=== PATIENT | female | born 1980 | race Caucasian/White ===

== ENCOUNTER 2022-09-17 10:00 | Outpatient (REF) | payer BC, SELFPAY ==
--- NOTE | ~2022-09-17 | MR_ITS ---
EXAMINATION: MR BRAIN WITHOUT AND WITH CONTRAST MR CERVICAL SPINE WITHOUT AND WITH CONTRAST CLINICAL INDICATION Multiple sclerosis. COMPARISON: There are no prior studies available for comparison at time of dictation. TECHNIQUE: MRI scans of the brain and cervical spine were obtained using routine sequences without and with contrast. Intravenous contrast: Gadavist, 5.5 mL. FINDINGS: MRI Brain: No diffusion abnormalities are identified to suggest an acute or subacute infarct. No mass effect or midline shift is seen. The ventricles and sulci are normal in size. Brain parenchymal signal is unremarkable. No extra-axial fluid collections are seen. The brainstem and cerebellum are normal. 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 On postcontrast imaging, there is no abnormal parenchymal or leptomeningeal enhancement. No pathologic magnetic susceptibility artifact is identified on the gradient refocused acquisition. The craniovertebral junction, marrow signal, and midline structures are normal. The major intracranial flow-voids at the level of the the [place] are preserved. The dural venous sinus flow-voids are maintained.; The intradural left vertebral artery has thinner caliber compared to the right. The mastoid air cells are well-aerated. There is extensive opacification of the left sphenoid sinus. MRI Cervical Spine: VERTEBRAL BODIES AND PARASPINAL SOFT TISSUES: There is a mild levoscoliosis. There is narrowing of intervertebral disc height at C5-C6 and C6-C7. The vertebral bodies have normal height and contour and no fractures are demonstrated. There are minimal edematous endplate signal changes toward the left at C5-C6. Overall, marrow signal is homogenous. There is no abnormal osseous enhancement. The visualized regional soft tissues and upper lung [place] are unremarkable. CERVICOMEDULLARY JUNCTION AND VISUALIZED POSTERIOR FOSSA: There is artifact over the posterior fossa on the T2 and STIR images. The craniocervical and visualized posterior fossa structures are normal. There is no abnormal enhancement of the spinal cord. SPINAL LEVELS: C2-C3: The facet joints appear normal bilaterally. Posterior disc contour is normal. There is no spinal cord compression or central stenosis. The neural foramina are patent bilaterally. C3-C4: The facet joints appear normal bilaterally. Posterior disc contour is normal. There is no spinal cord compression or central stenosis. The neural foramina are patent bilaterally. C4-C5: The facet joints appear normal bilaterally. Posterior disc contour is normal. There is no spinal cord compression or central stenosis. The neural foramina are patent bilaterally. C5-C6: The facet joints appear normal. There is a broad-based posterior soft disc protrusion which is more prominent just to the right of midline. There is effacement of CSF around the cord without cord compression. There is mild central stenosis. There are uncovertebral osteophytes and is moderate left and mild right foraminal narrowing. C6-C7: The facet joints appear normal. There is a broad-based posterior disc protrusion with an annular fissure which flattens the ventral thecal sac without significant effacement of CSF around the cord, and there is no central stenosis. The neural foramina appear patent bilaterally. C7-T1: The facet joints appear normal bilaterally. Posterior disc contour is normal. There is no spinal cord compression or central stenosis. The neural foramina are patent bilaterally. MR/MR cervical spine wo/w con IMPRESSION: MRI brain: 1. There are no acute bleeds or infarcts. There is no abnormal enhancement. 2. 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 3. There is extensive opacification of the left sphenoid sinus. MRI cervical spine: 1. There are no acute fractures or subluxations. There is a levoscoliosis. 2. There is mild spondylosis at C5-C6 and C6-C7. 3. There is moderate left and mild right foraminal narrowing at C5-C6. 4. There is no spinal cord compression. Spinal cord signal is normal in is no abnormal enhancement.
== END 2022-09-17 10:01 | disposition home or self-care (01) ==
LOC: HO.MRI 10:00
PROVIDERS: PCP Nurse Practitioner Acute Care; Visit Provider Psychiatry & Neurology Neurology
DX: G35 Multiple sclerosis (principal)
CPT/HCPCS: 70553; 72156; A9585